=== PATIENT | female | born 1980 | race Two or more races ===

== ENCOUNTER 2020-05-23 15:25 | Observation (INO) | payer MEDICAID, OTHER ==
[~2020-05-23] VITALS: Ht 167.6 cm; Wt 69.9 kg
[2020-05-23] MEDS ORDERED: CALC-959 MT (15:54)
[2020-05-23] MEDS ORDERED: HYDR10TA34 PO (15:54)
[2020-05-23 17:53] LABS: HEMATOCRIT 27.1 % (36.0-48.0); HEMOGLOBIN 9.1 g/dL (12.0-16.0); MEAN CORPUSCULAR HEMOGLOBIN 24.9 pg (28.0-32.0); MEAN CORPUSCULAR VOLUME 74.2 fL (81.0-99.0); PLATELET 221 x1000/uL (130-400); RED BLOOD CELL COUNT 3.66 mill/uL (4.2-5.4); RED CELL DISTRIBUTION WIDTH 14.5 % (11.6-14.6)
[2020-05-23 18:00] LABS: CHLORIDE 106 mEq/L (98-107)
[2020-05-23] MEDS ORDERED: POTASSIUM CHLORIDE 20MEQ TABLET SR PO NR ×2 (18:30→19:00)
== END 2020-05-23 19:00 | disposition home or self-care (01) ==
LOC: 8 EST LDRP 15:25
PROVIDERS: ADMIT Obstetrics & Gynecology; ATTEND Obstetrics & Gynecology
DX: O26.893 Other specified pregnancy related conditions, third trimester (principal); Z3A.34 34 weeks gestation of pregnancy
CPT/HCPCS: 36415; 59025; 76805; 76818; 80053; 82239; 85027; G0378

== ENCOUNTER 2020-07-02 22:26 | Observation (INO) | payer OTHER ==
[~2020-07-02] VITALS: Ht 165.1 cm; Wt 70.3 kg
[~2020-07-02 22:26] MED LIST: CALC-959 MT; HYDR10TA34 PO
[2020-07-02] MEDS ORDERED: FERR325T6 PO (23:38)
[2020-07-02] MEDS ORDERED: PNV1TABL50 PO (23:38)
== END 2020-07-03 00:25 | disposition home or self-care (01) ==
LOC: 8 EST LDRP 22:26
PROVIDERS: ADMIT Obstetrics & Gynecology; ATTEND Obstetrics & Gynecology
DX: O62.9 Abnormality of forces of labor, unspecified (principal); O26.893 Other specified pregnancy related conditions, third trimester; R10.9 Unspecified abdominal pain; Z3A.40 40 weeks gestation of pregnancy
CPT/HCPCS: 59025; G0378